=== PATIENT | male | born 1995 | race Asian ===

== ENCOUNTER 2016-10-03 11:35 | Emergency (ER) | payer SELFPAY ==
[~2016-10-03] VITALS: Wt 81.8 kg
[~2016-10-03 11:35] MED LIST: DOXY100T20 PO; HC30CR25 TOP; IBUP400T22 PO
[2016-10-03] MEDS ORDERED: ONDANSETRON (ODT) 4 MG TAB ODT STA (13:12)
[2016-10-03] MEDS ORDERED: ONDA8TAB14 PO (13:39)
[2016-10-03] MEDS ORDERED: BISM262O23 PO (13:39)
--- NOTE | 2016-10-03 13:42 | ERD ---
ER Documentation Chief Complaint Date/Time DATE: 10/03/16 TIME: 13:40 Chief Complaint peter, n/v/d HPI This 21-year-old male complains of vomiting diarrhea for last 3 days. He has a mild bitemporal headache. There was some household members with similar symptoms last week. He has no fevers, blood. Denies abdominal pain. He denies any foreign travel or suspect food. ROS All systems reviewed and are negative except as per history of present illness. Medications Home Meds Active Scripts Bismuth Subsalicylate* (Pepto-Bismol*) 262 Mg/15 Ml Oral.susp, 15 ML PO Q3H Y for DIARRHEA for 4 Days, ML Prov:SHWETA DAMON MD 10/03/16 Ondansetron (Ondansetron Odt) 8 Mg Tab.rapdis, 8 MG PO Q6H Y for NAUSEA AND/OR VOMITING, #10 TAB Prov:SHWETA DAMON MD 10/03/16 Ibuprofen* (Motrin*) 400 Mg Tab, 400 MG PO Q6, #20 TAB Prov:HAMMAD MOTLEY NP 07/08/16 Hydrocortisone* Topical (Hydrocortisone* Topical) 2.5%-28.3 Gm Cream..g., 1 APPLIC TOP BID for 10 Days, #1 TUB Prov:SHWETA DAMON MD 06/24/16 Doxycycline Hyclate* (Doxycycline Hyclate*) 100 Mg Tablet.dr, 100 MG PO BID for 10 Days, TAB Prov:SHWETA DAMON MD 06/24/16 Reported Medications [None] No Conflict Check 06/10/13 Allergies Allergies: Coded Allergies: No Known Allergies (Verified Allergy, Unknown, 07/08/16) PMhx/Soc History of Surgery: No Anesthesia Reaction: No Hx Neurological Disorder: No Hx Respiratory Disorders: Yes (had hx of asthma ) Hx Cardiac Disorders: No Hx Psychiatric Problems: No Hx Miscellaneous Medical Probl: No Hx Alcohol Use: No Hx Substance Use: Yes (marijuana) Hx Tobacco Use: No Physical Exam Vitals Vital Signs Date Time Temp Pulse Resp B/P Pulse Ox O2 Delivery O2 Flow Rate FiO2 10/03/16 11:47 98.0 75 20 140/78 100 Physical Exam Const: [] Alert, [id number], well-hydrated. Head: Atraumatic Eyes: Normal Conjunctiva ENT: Normal External Ears, Nose and Mouth. Neck: Full range of motion..~ No meningismus. Resp: Clear to auscultation bilaterally Cardio: Regular rate and rhythm, no murmurs Abd: Soft, non tender, non distended. Normal bowel sounds Skin: No petechiae or rashes Back: No midline or flank tenderness Ext: No cyanosis, or edema Neur: Awake and alert Psych: Normal Mood and Affect Results 24 hrs Current Medications Medications (Trade) Dose Ordered Sig/Robles Route PRN Reason Start Time Stop Time Status Last Admin Dose Admin Ondansetron HCl (Zofran Odt) 8 mg ONCE STAT ODT 10/03/16 13:12 10/03/16 13:13 DC 10/03/16 13:30 Procedures/MDM Patient presents with vomiting diarrhea for last 3 days without evidence to suggest dehydration, abdominal pain, sepsis, additional complications of vomiting diarrhea. I suspect he has a viral illness should be self-limited. He was given Zofran 8 mg by mouth once stable, amatory [id number] throughout the ED course. Patient was advised to return for vomiting despite treatment, abdominal pain, blood, new worsening symptoms otherwise with primary doctor this week and allow 1-2 days for viral illness to resolve. The patient was stable with no new complaints during the ER course. Clinically, there is no current evidence to suggest meningitis, sepsis, acute abdomen, pneumonia, acute coronary syndrome, pulmonary embolism, or any other emergent condition appearing to require further evaluation or hospitalization. The patient should certainly return for any new or worsening symptoms per the aftercare instructions. They should otherwise follow-up with her primary care doctor for reevaluation this week. Departure Diagnosis: Primary Impression: Vomiting and diarrhea Condition: Stable Patient Instructions: Self-Care for Vomiting and Diarrhea, Vomiting And Diarrhea, Nonspecific (Adult) Additional Instructions: Likely viral illness should resolve in the next 1-3 days. Recheck for new or worsening symptoms with primary care doctor. SHWETA DAMON MD Oct 03, 2016 13:41
== END 2016-10-03 13:49 | disposition home or self-care (01) ==
LOC: FTE 11:35
DX: R11.10 Vomiting, unspecified (principal); J45.909 Unspecified asthma, uncomplicated
CPT/HCPCS: 99283